=== PATIENT | female | born 1995 | race Caucasian/White ===

== ENCOUNTER 2017-11-12 18:44 | Emergency (ER) | payer OTHER ==
[2017-11-12 19:28] LABS: URINE HCG POC HCG NEGATIVE (Negative)
[2017-11-12 19:30] LABS: BILIRUBIN,URINE NEGATIVE (NEG); CLARITY,URINE CLEAR; COLOR,URINE YELLOW; GLUCOSE,URINE NEGATIVE (NEG); NITRITE,URINE NEGATIVE (NEG); PH,URINE 6.5; PROTEIN,URINE NEGATIVE (NEG-TRACE); UROBILINOGEN,URINE 0.2 mg/dL (0.2 mg/dL)
[2017-11-12 19:41] LABS: BACTERIA,URINE MODERATE /HPF (0-FEW); SQUAMOUS EPITHELIAL CELL,UR MOD /LPF; WBC,URINE 0 /HPF (0-4)
[2017-11-12] MEDS: KETOROLAC 60 MG/2 ML INJ. IM (19:46)
[2017-11-12] MEDS: ONDANSETRON ODT 4 MG TAB.RAPDIS. PO (19:46)
[2017-11-12] MEDS: fentaNYL PF VIAL 100 MCG/2 ML VIAL IM (19:47)
[2017-11-12] MEDS: methylPREDNISolone SOD SUCC PF 125 MG/2 ML VIAL. IM (19:47)
[2017-11-12 19:59] LABS: AMPHETAMINE/METHAMPHETAMINE NEG (NEG); BARBITURATES NEG (NEG); BENZODIAZEPINES NEG (NEG); CANNABINOIDS NEG (NEG); COCAINE NEG (NEG); ETHANOL, URINE NEG (NEG); METHADONE NEG (NEG); OPIATES NEG (NEG); PHENCYCLIDINE NEG (NEG)
== END 2017-11-12 20:48 | disposition home or self-care (01) ==
LOC: ER 18:44
DX: M54.6 Pain in thoracic spine (principal); I10 Essential (primary) hypertension; Z79.899 Other long term (current) drug therapy
CPT/HCPCS: 72128; 80307; 81001; 81025; 87086; 96372; 99285-25; J1885; J2930; J3010; Q0162